=== PATIENT | male | born 1975 | race Two or more races ===

== ENCOUNTER 2022-09-09 02:13 | Emergency (ER) | payer MEDICAID ==
[~2022-09-09] VITALS: Ht 165.1 cm; Wt 112.7 kg
[2022-09-09] MEDS ORDERED: CIPRSUS OT (04:47)
[2022-09-09 06:26] VITALS: BP 138/92
== END 2022-09-09 06:31 | disposition home or self-care (01) ==
LOC: ER 02:19
DX: T16.2XXA Foreign body in left ear, initial encounter (principal); X58.XXXA Exposure to other specified factors, initial encounter; Y93.89 Activity, other specified; Y92.89 Other specified places as the place of occurrence of the external cause; Y99.8 Other external cause status